=== PATIENT | female | born 1960 | race African-American/Black ===

== ENCOUNTER → 2016-11-25 | Day surgery (SDC) | payer OTHER ==
[~2016-11-25] MED LIST: ALPRAZOLAM PO; CYMBALTA30 MG PO; CYTOMEL5 MCG PO; FIORICET 50-321 EACH PO; HYDROCODON-ACE1 EA11; LYRICA100 MG PO; LYRICA75 MG PO; MULTI VITAMIN1 EACH PO; OXYCODONE HCL15 MG PO; PERCOCET PO; SYNTHROID125 PO; TAMIFLU75 M1 PO; TESSALON200 MG PO; VOLTAREN75 MG PO; XANAX1 MG PO; ZOLOFT50 MG PO
--- NOTE | ~2016-11-25 | OR ---
Unit #: [id number] #: [id number] Patient: BIANKA GOLDEN [id number] [address] [address] [id number] MR#: [id number] NAME: BIANKA GOLDEN ROOM: Date of Procedure: 11/25/2016 Admission Date: 11/25/2016 Surgeon: James Mcelroy M.D. : 1960 Attending Physician: James Mcelroy M.D. Primary Care Physician: Nick York M.D. OPERATIVE REPORT PREOPERATIVE DIAGNOSES Back pain, radiculopathy, degenerative disk disease. POSTOPERATIVE DIAGNOSES Back pain, radiculopathy, degenerative disk disease. PROCEDURES PERFORMED Lumbar epidural steroid injection with intravenous sedation and fluoroscopic guidance for needle localization. INDICATIONS FOR PROCEDURE The patient is a 53-year-old female with worsening back and lower extremity pains associated with previously mentioned diagnosis. She was last treated with epidural steroid injection in 2012 and did very well for few years. She had resurgence of pain, which will not settle. She also has fibromyalgia and number of the pain issues. Based on history, pathology, symptomatology, and response to treatment, we are going to proceed with a repeat epidural steroid injection today. DESCRIPTION OF PROCEDURE The patient was placed in a seated position. Standard monitors were applied. 4 mg of Versed and 50 mcg of fentanyl given for sedation and anxiolysis, which were adequate. Vital signs remained stable. Sterile prep and drape then of the lumbar area was performed. The skin then at the L4 level was localized with 1% lidocaine. An 18-gauge Hustead needle was then advanced via loss of resistance technique and fluoroscopic guidance in toward the epidural space. The patient did not complain of pain or paresthesia during needle advancement. After confirming proper positioning with fluoroscopy and radiographic contrast, 80 mg of Depo-Medrol and 4 mL of 0.125% bupivacaine were deposited. The patient tolerated the procedure otherwise well and was discharged to recovery room in stable condition. Dictated by... James Mcelroy M.D. LHP/modl TD: 11/26/2016 01:32 JOB #: [id number] Unit #: [id number] #: [id number] Patient: BIANKA GOLDEN OPERATIVE REPORT Page 1 of 1 X James Mcelroy MD X PROCEDURE OPERATIVE NOTE
== END | disposition home or self-care (01) ==
LOC: CCSC 08:02
DX: M51.16 Intervertebral disc disorders with radiculopathy, lumbar region (principal); M79.7 Fibromyalgia
CPT/HCPCS: J1040; J2250; J3010

== ENCOUNTER 2016-12-06 19:27 | Emergency (ER) | payer OTHER | END 2016-12-06 21:59 | disposition home or self-care (01) | LOC: CED 19:27 | DX: R51 Headache (principal); Z90.710 Acquired absence of both cervix and uterus; F17.200 Nicotine dependence, unspecified, uncomplicated; Z88.5 Allergy status to narcotic agent | CPT/HCPCS: 96361; 96374; 96375; 99284; J0780; J1200; J1885 ==